=== PATIENT | female | born 1995 | race Caucasian/White ===

== ENCOUNTER → 2019-10-11 11:34 | Outpatient (CLI) | payer OTHER, SELFPAY ==
[2019-10-11 12:25] LABS: Amphetamine/Metha Screen,Urine Negative ng/ml (<1000); Barbiturates Screen,Urine Negative ng/ml (<200)
[2019-10-11 12:26] LABS: Benzodiazepines Screen,Urine Negative ng/ml (<200)
[2019-10-11 12:27] LABS: Cannabinoid Screen,Urine Negative ng/ml (<50); Methadone Screen,Urine Negative ng/ml (<300)
[2019-10-11 12:28] LABS: Opiate Screen,Urine Negative ng/ml (<300)
[2019-10-11 12:29] LABS: Phencyclidine Screen,Urine Negative ng/ml (<25)
[2019-10-11 12:51] LABS: Cocaine Screen,Urine Negative ng/ml (<300)
== END ==
PROVIDERS: Visit Provider Obstetrics & Gynecology
DX: Z34.90 Encounter for supervision of normal pregnancy, unspecified, unspecified trimester (principal)
CPT/HCPCS: 80305

== ENCOUNTER → 2019-10-18 10:24 | Outpatient (CLI) | payer BC, SELFPAY ==
--- NOTE | 2019-10-18 10:32 | US_ITS ---
PROCEDURE: US OB FOLLOW UP CLINICAL INDICATION: size and date decrepancy OB follow-up, small for gestational age COMPARISON: No exams were available for comparison FINDINGS: There is a single live fetus present which is in cephalic presentation. heart and body motion noted. The cervix is closed and measures 4 cm transabdominal. heart tones are 150 beats per minute. The following parameters are obtained: Average ultrasound age 32 weeks 2 days, BPD 31 weeks 2 days, OFD 32 weeks 4 days, HC 31 weeks 6 days, AC 32 weeks 4 days, FL 33 weeks 3 days. All parameters correlate. The placenta is anterior in implantation and grade 1. No evidence of previa. CASTRO is normal at 14 cm. No obvious anomalies. Estimated weight is 2004 g which is 13th percentile. IMPRESSION: Live IUP with an average ultrasound age of 32 weeks 2 days and an estimated weight 2004 g which is 13th percentile. All parameters correlate. This does not constitute a 20 week anatomy exam. Normal CASTRO at 14 cm Dictated by: Neville Estrella MD 10/18/2019 13:36 Electronically signed by Neville Estrella MD in [place] 10/18/2019 13:36
== END ==
PROVIDERS: Visit Provider Obstetrics & Gynecology
DX: Z34.90 Encounter for supervision of normal pregnancy, unspecified, unspecified trimester (principal)
CPT/HCPCS: 76816

== ENCOUNTER → 2019-11-01 15:37 | Outpatient (CLI) | payer BC, SELFPAY | PROVIDERS: Visit Provider Obstetrics & Gynecology | DX: Z34.90 Encounter for supervision of normal pregnancy, unspecified, unspecified trimester (principal) | CPT/HCPCS: 86403 ==

== ENCOUNTER 2019-11-25 16:08 | Inpatient (IN) | payer BC, SELFPAY ==
[2019-11-25 16:19] VITALS: BMI 36.0
[2019-11-25 17:00] VITALS: BP 112/63; PULSE 97; RESP 18; TEMP 36.7; O2SAT 99; BMI 36.0
[2019-11-25 17:04] LABS: Basophils % 0.1 % (0.1-2.0); Eosinophils # 0.2 K/mm3 (0.0-0.4); Hematocrit 30.7 % (37.0-47.0); Hemoglobin 10.5 g/dL (12.2-16.2); Lymphocytes # 2.1 K/mm3 (0.7-4.5); Lymphocytes % 14.2 % (10-50); Mean Corpuscular HGB Conc 34.3 g/dL (31.8-35.4); Mean Corpuscular Hemoglobin 26.8 pg (27.0-31.2); Mean Corpuscular Volume 78.3 fl (81-99); Mean Platelet Volume 8.7 fl (7.4-10.4); Monocytes # 0.8 K/mm3 (0.1-1.0); Monocytes % 5.5 % (1.7-9.3); Neutrophils # 11.9 K/mm3 (1.8-7.8); Neutrophils % 79.2 % (37.0-80.0); Platelet Count 231 K/mm3 (142-424); Red Blood Count 3.93 M/mm3 (4.20-5.40); Red Cell Distribution Width 14.4 % (11.5-17.5)
[2019-11-25 17:06] LABS: Appearance,Urine CLEAR (Clear); Bilirubin,Urine Negative (Negative); Blood, Urine Negative (Negative); Color,Urine YELLOW (Yellow); Glucose,Urine (UA) Negative (Negative); Ketones,Urine Negative (Negative); Leukocyte Esterase,Urine Negative (Negative); Nitrate,Urine Negative (Negative); Protein,Urine Negative (Negative); Specific Gravity, Urine >= 1.030 (1.005-1.030); Urobilinogen,Urine 0.2 EU/dl (0.2)
[2019-11-25 17:07] LABS: MANUAL DIFFERENTIAL MANUAL DIFFERENTIAL (MANUAL DIFF)
[2019-11-25 17:07] LABS: Microscopic, Urine URINE MICROSCOPIC (MICROSCOPIC)
[2019-11-25 17:14] LABS: Amorphous Sediment,Urine 1+ /lpf; Bacteria,Urine Trace /lpf; RBC,Urine Occasional #/hpf (0-3); Squamous Epithelial Cell,Urine 20-50 #/hpf (0-5); WBC,Urine Occasional #/hpf (0-3)
[2019-11-25 17:17] LABS: Benzodiazepines Screen,Urine Negative ng/ml (<200)
[2019-11-25 17:18] LABS: Amphetamine/Metha Screen,Urine Negative ng/ml (<1000); Barbiturates Screen,Urine Negative ng/ml (<200)
[2019-11-25 17:19] LABS: Cannabinoid Screen,Urine Negative ng/ml (<50)
[2019-11-25 17:19] LABS: Anisocytosis 1+; Lymphocytes % 16 % (10-50); Microcytosis 1+; Monocytes % 2 % (2-9); Neutrophils % 81 % (42-76); Platelet Estimate Normal; Poikilocytosis 1+; Total Cells Counted 100
[2019-11-25 17:20] LABS: Hypochromasia 1+
[2019-11-25 17:20] LABS: Cocaine Screen,Urine Negative ng/ml (<300); Methadone Screen,Urine Negative ng/ml (<300)
[2019-11-25 17:21] LABS: Opiate Screen,Urine Negative ng/ml (<300)
[2019-11-25 17:22] LABS: Phencyclidine Screen,Urine Negative ng/ml (<25)
[2019-11-25 17:41] LABS: Coronavirus 19 IgG Antibody Negative (Negative); Coronavirus 19 IgM Antibody Negative (Negative)
[2019-11-25 20:02] VITALS: BP 116/67; PULSE 71; RESP 16; TEMP 36.7; O2SAT 99
[2019-11-25 23:51] VITALS: BP 115/59; PULSE 67; RESP 16; TEMP 36.7; O2SAT 98
[2019-11-26 04:08] VITALS: BP 115/60; PULSE 68; RESP 16; TEMP 36.6; O2SAT 100
[2019-11-26 08:21] VITALS: BP 114/66; PULSE 64; RESP 18; TEMP 36.5; O2SAT 100
--- NOTE | 2019-11-26 10:33 | P.PN_ITS ---
[facility] Anesthesia Checklist - Patient Identification Patient Identification: Arm Band - Structural Data Admitted From: Inpatient Planned Operative Procedure/s: labor epidural Consent for Planned Operative Procedure(s) Verified: Yes Verified Documents: Surgical Consent, History and Physical - NPO Status Verified Time NPO: 00:00 - Additional verifications Anesthesia Reactions: No - Airway Assessment C-Spine Mobility Assessed: Yes TMJ Mobility Assessed: Yes Dentition: Good Dentition - Neurological Assessment Level of Consciousness: Awake, Alert - Anesthesia Plan Anesthesia Risk discussed: Yes Anesthesia Plan: Verified ASA Class: II Anesthesia Type: Epidural [facility] History I have reviewed the patient's past medical history: Yes *Have you ever received a pneumonia vaccine?: No *Have you received a flu vaccine this season?: No Anesthesia experience/problems:: nac Other Surgeries: No: Amputation: No Fractures: No - *Social History Smoking Status: Current every day smoker Alcohol Intake: never Substance Use Type: denies use *Occupational Status:: unemployed *Travel in the last 8 weeks: None Family Hx:: Diabetes, Hyperlipidemia, Hypertension Para: 1
--- NOTE | 2019-11-26 11:35 | [facility]H.LABNOT ---
Labor Note - Subjective: Date: 11/26/19 Time: 11:35 Comment:: IOL 39+ wks IUGR 13% S/P cervidil ripening; pitocin currently infusing Regular contractions comfortable with epidural - Objective: NST:: Reactive Contractions:: every 2-3 minutes Cervical Dilation:: 3-4 Effacement:: 70% Station: -1 - Fetus: Comment:: AROM clear fluid IUPC & FSE placed without difficulty or complication - Assessment: Labor progressing?: Yes Patient Problems: All Active Problems Anemia complicating (Acute) 39 weeks gestation of (Acute) Tobacco smoking complicating (Acute) Small for dates fetus (Acute) with care elsewhere (Acute) (Acute) - Plan: Comment:: Continue pitocin augmentation Continuous monitoring Anticipate
[2019-11-26 12:25] VITALS: BP 106/59; PULSE 56; RESP 18; TEMP 36.4; O2SAT 98
--- NOTE | 2019-11-26 15:02 | [facility].DN ---
- Delivery Note Delivery Date:: 11/26/19 Delivery Time:: 14:09 Anesthesia Type: Epidural Was labor medically induced?: Yes Induction method: per pitocin protocol Gestational age (weeks): 39 delivered prior to 39 weeks?: No Gender: Male at 1 minute: 9 at 5 minutes: 9 Delivery Procedure:: Spontaneous vaginal delivery of liveborn male infant over intact perineum. Delivery uncomplicated No nuchal cord or shoulder dystocia with delivery placed in REYNA with mother immediately after umbilical cord clamped/cut, with standard nursing assessment performed Infant Apgars: 9 & 9 Placenta spontaneously expressed and examined; noted to be complete/intact. Vulva, vagina, and cervix inspected; 1st degree perineal laceration repaired with 3-0 vicryl figure of 8 EBL: 300 cc All sponge/needle/instrument counts correct at conclusion of procedure Disposition: Mom/baby stable to recovery in [facility] Laceration:: vaginal Placental Delivery Description: Spontaneous
[2019-11-26 19:51] VITALS: BP 112/58; PULSE 71; RESP 18; TEMP 36.9; O2SAT 98
[2019-11-27 03:02] VITALS: BP 110/58; PULSE 70; RESP 18; TEMP 36.7; O2SAT 97
[2019-11-27 06:47] LABS: Hematocrit 30.2 % (37.0-47.0); Hemoglobin 9.8 g/dL (12.2-16.2)
--- NOTE | 2019-11-27 07:55 | [facility].ACPN2 ---
Internal Medicine - PN: Subj *Date: 11/27/19 *Time: 07:55 Interval history: PPD #1 No unusual complaints Tolerating regular diet Ambulating and voiding without difficulty Lochia appropriate & pain control sufficient Asymptomatic with [id number] anemia Exam Vital signs and Labs for Last 24 Hours: Temp Pulse Resp BP Pulse Ox 98.1 F 70 18 110/58 L 97 11/27/19 03:02 11/27/19 03:02 11/27/19 03:02 11/27/19 03:02 11/27/19 03:02 Laboratory Results - last 24 hr 11/27/19 06:12: Hgb 9.8 L, Hct 30.2 L I & O for Last 24 hours: Intake & Output 11/24/19 11/25/19 11/26/19 11/27/19 11:59 11:59 11:59 11:59 Output Total 600 / 600 Balance -600 / -600 Weight 210 lb Narrative: CONSTITUTIONAL: no acute distress HEENT: mucous membranes moist PULMONARY: breathing unlabored without audible wheezes CV: no tachycardia or visible JVD; normal LE peripheral pulses ABD: soft, NT/ND, no guarding : fundus firm at/below umbilicus SKIN: no visible rash or lesions EXT: 1+ edema LEs NEURO: alert/oriented, no altered mental status PSYCH: appropriate mood and demeanor without anxiety/depression Assessment and Plan (1) 39 weeks gestation of Current visit: Yes Status: Acute Category: Medical Code(s): Z3A.39 - 39 weeks gestation of (2) Anemia complicating Current visit: Yes Status: Acute Category: Medical Code(s): O99.019 - Anemia complicating , unspecified trimester (3) Vaginal delivery Current visit: Yes Status: Acute Category: Medical Code(s): O80 - Encounter for full-term uncomplicated delivery (4) Small for dates fetus Current visit: No Status: Acute Category: Medical (5) Tobacco smoking complicating Current visit: No Status: Acute Category: Medical Code(s): O99.330 - Smoking (tobacco) complicating , unspecified trimester - Assessment and plan all Dx Assessment and Plan for all problems:: Routine care PNV with FeSO4 Anticipate discharge home tomorrow
[2019-11-27 08:00] VITALS: BP 118/68; PULSE 74; RESP 18; TEMP 36.7; O2SAT 98
[2019-11-27 16:00] VITALS: BP 117/69; PULSE 77; RESP 16; TEMP 36.5; O2SAT 97
[2019-11-27 20:34] VITALS: BP 107/67; PULSE 63; RESP 18; TEMP 36.8; O2SAT 98
[2019-11-28 02:56] VITALS: BP 118/77; PULSE 65; RESP 18; TEMP 36.7; O2SAT 98
[2019-11-28 08:15] VITALS: BP 114/68; PULSE 85; RESP 18; TEMP 36.7; O2SAT 98
--- NOTE | 2019-11-28 11:14 | P.DS_ITS ---
General - General Admission date:: 11/25/19 Discharge date: 11/28/19 Hospital Course Hospital Course: IOL at 39 wks IUGR 13% Uncomplicated normal vaginal delivery course uneventful Discharged home on PPD #2 in stable condition Ambulating and voiding without difficulty Tolerating regular diet Lochia appropriate Asymptomatic with [id number] anemia Declines pain medication at discharge Rhogam Administration: Not Indicated Objective Vital signs: Temp Pulse Resp BP Pulse Ox 98.0 F 85 18 114/68 98 11/28/19 08:15 11/28/19 08:15 11/28/19 08:15 11/28/19 08:15 11/28/19 08:15 Narrative: CONSTITUTIONAL: no acute distress HEENT: mucous membranes moist PULMONARY: breathing unlabored without audible wheezes CV: no tachycardia or visible JVD; normal LE peripheral pulses ABD: soft, NT/ND, no guarding : fundus firm at/below umbilicus SKIN: no visible rash or lesions EXT: 1+ edema LEs NEURO: alert/oriented, no altered mental status PSYCH: appropriate mood and demeanor without anxiety/depression DS: Diagnosis - Discharge Diagnosis (1) 39 weeks gestation of Status: Acute (2) Small for dates fetus Status: Acute (3) Vaginal delivery Status: Acute (4) Anemia complicating Status: Acute (5) Tobacco smoking complicating Status: Acute Discharge Plan - Patient Discharge Instructions ACTIVITY: Continue current activity DIET: regular diet Additional Instructions: NO HEAVY LIFTING OR STRENUOUS ACTIVITY NOTHING IN VAGINA FOR [address] FOLLOW-UP WITH DR. CUELLAR Patient Instructions: Depression, Hemorrhage, DI for Labor and Delivery, Vaginal , DI for Pre-eclampsia, [facility] Post Discharge Instructions, Preventing the Spread of Coronavirus Discharge Instruct ions - Follow up Plan Follow up with: Kaylen Cuellar MD [Staff Physician] - 01/08/20 1:30 pm Disposition: Home, Self-Fpc Medications: Home Medications Medication Instructions Recorded Confirmed Type vitamins no.119-iron 1 tab PO DAILY 10/11/19 11/26/19 History fumarate 29 mg-folic acid 1 mg tablet Prescriptions/Medication Reconciliation: New Ibuprofen [Motrin 400mg tablet] 800 mg PO Q6HP PRN tablet PRN Reason: Mild To Moderate Pain Acetaminophen [Acetaminophen 325mg tab] 650 mg PO Q4HP PRN tablet PRN Reason: Mild Pain Continued vitamins no.119-iron fumarate 29 mg-folic acid 1 mg tablet 1 tab PO DAILY - Problem Reconciliation Problems Reviewed?: Yes
== END 2019-11-28 12:00 | disposition home or self-care (01) | DRG 807 ==
PROVIDERS: Admitting Provider Obstetrics & Gynecology; Visit Provider Obstetrics & Gynecology
DX: O36.5930 Maternal care for other known or suspected poor fetal growth, third trimester, not applicable or unspecified (principal); Z37.0 Single live birth; Z3A.39 39 weeks gestation of pregnancy; O70.0 First degree perineal laceration during delivery; O99.019 Anemia complicating pregnancy, unspecified trimester; O99.330 Smoking (tobacco) complicating pregnancy, unspecified trimester; F17.210 Nicotine dependence, cigarettes, uncomplicated
CPT/HCPCS: 59409; 36415; 59025; 80305; 81001; 85007; 85014; 85018; 85025; 86328; 86850; 94761; C1758; J0595; J2405